=== PATIENT | female | born 1960 | race Caucasian/White ===

== ENCOUNTER → 2021-02-01 08:32 | Outpatient (CLI) | payer OTHER, MEDICAID, SELFPAY ==
--- NOTE | 2021-02-01 | DI.RAD.S_ITS ---
PROCEDURE: FL UPPER GI SMALL BOWEL INDICATIONS: Anemia, unspecified COMPARISON: None. 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 Cholecystectomy clips are present. No suspicious abdominal calcifications. Visualized solid organ contours appear normal in size. No suspicious bony abnormalities. Esophagus: Air-contrast views demonstrate a normal mucosal pattern. On single-contrast views, there is normal peristalsis. No fixed strictures, extrinsic mass effects, or diverticula. There is a small hiatal hernia. There is severe spontaneous gastroesophageal reflux into the upper esophagus. Stomach: The gastric lumen is normally distensible, and has normal rugal fold thickness. No mucosal masses or ulcers. The pylorus and duodenal bulb have a normal morphology. Small bowel: Duodenal folds appear normal in thickness. There is normal transit time of barium through the small intestine. Small bowel loops appear normal in caliber throughout. Jejunal and ileal folds are smooth and normal in thickness. No strictures, intraluminal masses, or extrinsic mass effects. IMPRESSION: 1. Small hiatal hernia with severe associated spontaneous gastroesophageal reflux. 2. Negative evaluation of the small bowel. Dictated by: Saundra Reyes M.D. on 02/01/2021 at 16:20 Approved by: Saundra Reyes M.D. on 02/01/2021 at 16:21
== END ==
PROVIDERS: PCP Internal Medicine; Referring Provider Internal Medicine; Visit Provider Internal Medicine
DX: D64.9 Anemia, unspecified (principal)
CPT/HCPCS: 74240; 74248

== ENCOUNTER → 2021-06-11 10:27 | Outpatient (CLI) | payer OTHER, MEDICAID, SELFPAY ==
[2021-06-11 14:22] LABS: COVID19 -Nasal RAPID Negative (Negative)
== END ==
PROVIDERS: PCP Internal Medicine; Referring Provider Nurse Practitioner Family; Visit Provider Nurse Practitioner Family
DX: Z20.822 Contact with and (suspected) exposure to COVID-19 (principal); Z01.812 Encounter for preprocedural laboratory examination
CPT/HCPCS: 87635; C9803

== ENCOUNTER 2021-06-12 08:12 | Day surgery (SDC) | payer OTHER, MEDICAID, SELFPAY ==
--- NOTE | 2021-06-12 | PATH_ITS ---
[facility] Accession Number: [id number] . 01 Material submitted: . PART A: stomach - ANTRAL PART B: esophagus, E-G Junction - GE JUNCTION . 02 Diagnosis: A. Antrum, Biopsy: Gastric antral mucosa with mild chronic and active inflammation. Negative for Helicobacter organisms by immunohistochemistry. Negative for intestinal metaplasia. Negative for dysplasia or malignancy. . B. Gastroesophageal Junction, Biopsy: Squamocolumnar junctional mucosa with mild chronic inflammation. Negative for specialized intestinal metaplasia on alcian blue stain. Negative for dysplasia or malignancy. MRV 06/15/2021 1448 Local . 02 Electronically signed: . Blake Tineo MD, PhD, Pathologist NPI- [id number] . 01 Gross description: . Part A: ANTRAL: Received in formalin are 2 fragment(s) of rosales, soft tissue measuring 0.3 x 0.2 x 0.2 cm to 0.3 x 0.2 x 0.2 cm submitted entirely in 1 cassette(s) Part B: GE JUNCTION: Received in formalin is 1 fragment(s) of rosales, soft tissue measuring 0.3 x 0.1 x 0.1 cm submitted entirely in 1 cassette(s) /HARSH 06/13/2021 0507 Local . 02 Microscopic: . A. An immunohistochemical stain was performed to evaluate for Helicobacter organisms and is negative. The control stain showed appropriate reactivity. . B. An AB/PAS stain is performed to evaluate for specialized intestinal metaplasia and is negative for goblet cells. A control stain shows appropriate reactivity. . * This test was developed and its performance characteristics determined by [employer]. It has not been cleared or approved by the U.S. Food and Drug Administration. The FDA has determined that such clearance or approval is not necessary. This test is used for clinical purposes. It should not be regarded as investigational or for research. . 02 Pathologist provided ICD-10: K29.70, K20.80 . 02 CPT . 960589, 511576, O95551, 798607 Performed at: 01 [facility] [address] [id number] MD Chandler Benavidez MD Phone: [phone] Performed at: 02 [facility] [address] [place] [id number] MD Harini Wick MD Phone: [phone]
[2021-06-12 09:15] VITALS: BP 133/88; PULSE 70; RESP 16; TEMP 36.4; O2SAT 97; BMI 29.2
--- NOTE | 2021-06-12 09:23 | PM.HP.1 ---
History of Present Illness History of Present Illness Date Patient Seen: 06/12/21 Time Patient Seen: 09:23 Chief complaint: SDC Narrative: I reviewed my note from March 12, 2021 no significant changes. Patient indicates that she still having some bleeding but also reports a bulging out in her epigastric region Patient History Medical History Bipolar 1 disorder Hiatal hernia Surgical History H/O: hysterectomy History of appendectomy Hx of abdominal surgery Hx of cholecystectomy Meds Home Medications and Allergies Home Medications Medication Instructions Recorded Confirmed Type aripiprazole 20 mg tablet 20 mg PO DAILY 06/12/21 06/12/21 History aripiprazole 5 mg tablet 5 mg PO DAILY 06/12/21 06/12/21 History Allergies Allergy/AdvReac Type Severity Reaction Status Date / Time Penicillins Allergy Severe Swelling Verified 06/12/21 09:06 of Lip/Tongue/Throat peanut Allergy Rash Verified 06/12/21 09:08 acetaminophen [From Vicodin] AdvReac Confusion Verified 06/12/21 09:08 codeine AdvReac Confusion Verified 06/12/21 09:07 hydrocodone [From Vicodin] AdvReac Confusion Verified 06/12/21 09:08 Review of Systems Review of Systems ROS: Yes All systems reviewed with the patient and are negative except as otherwise documented Exam Const General: cooperative and comfortable Orientation: alert HENNE Head: normocephalic Ears: external ears normal Nose: external nose normal Face and sinus: normal facial exam Mouth: oral mucosae normal Eyes General: appearance normal, both eyes and all related structures Neck Neck: normal visual inspection Chest Chest: normal inspection of the chest Resp Effort & Inspection: normal respiratory effort Auscultation: clear to auscultation bilaterally Cardio Rate: regular rate Rhythm: regular rhythm Heart Sounds: no murmurs GI Inspection: normal to inspection Palpation: soft and No tender Auscultation: normal bowel sounds Skin General: no rashes or lesions noted and No jaundice Neuro General: patient alert and moves all extremities Cognition: normal cognition Speech: speech normal Extrem General: no pedal edema Psych Appearance: grossly normal Assessment & Plan Assessment & Plan narrative: Dark stools epigastric bulging. GERD. EGD is pursued today. Time Spent With Patient Critical Care time: I spent a total of [] minutes of critical care time on this patient's care today; this time is exclusive of procedural time.
--- NOTE | 2021-06-12 09:25 | PM.PREOP ---
Pre-operative Note COVID-19 COVID-19 status: Negative Result date/Date tested (Pos, Neg/Pending): 06/11/21 Interval Note History & Physical reviewed/Exam performed by Physician: Yes Changes to H&P: No ASA Class (for procedural sedation): II
[2021-06-12] MEDS: SODIUM CHLORIDE 0.9% 1,000 ML 84 ML IV (09:26)
[2021-06-12 09:28] VITALS: BMI 29.2
[2021-06-12 10:16] VITALS: BP 112/67; PULSE 68; RESP 12; TEMP 36.3; O2SAT 92
--- NOTE | 2021-06-12 10:19 | PM.OP.EGD ---
Operative Date/Time/Diagnoses Date of procedure: 06/12/21 Time of procedure: 10:19 Post-op diagnosis: same Procedure & Clinicians Study performed: EGD with biopsies Same procedure as scheduled: Yes Indications: Melena Surgeon: Da Peralta Procedure Notes SCOAP/Timeout: Done Procedure in detail: After the risks and benefits were explained, written and verbal informed consent was obtained. The patient was brought into the procedure room and placed into the left lateral decubitus position. Please see nurse [employer] compliance internship notes for sedation details. The scope was introduced into the mouth through the bite block and advanced under direct visualization to the 2nd portion of the duodenum. The scope was slowly withdrawn carefully examining the mucosa for any defects or lesions. Retroflexed views were accomplished in the stomach. The stomach was decompressed, the scope was then removed from the patient who tolerated the procedure well. Sedation minutes: 10 Complications: none Impression: 1. Duodenum: There was some streaky erythema in the duodenal bulb. No ulcers erosions mass lesions strictures or other pathology throughout including excellent visualization of the 2nd portion. 2. Stomach: Patient had an erosive gastropathy. Erosive features were mainly found down in the pre-pyloric/pyloric and antral region. Biopsies were acquired for exclusion of Helicobacter or other pathology. Retroflexed views of the LES were unremarkable. No mass lesions no ulcers no strictures in the stomach. 3. Esophagus: The squamocolumnar junction generally correlated with the top of the gastric folds. The GEJ was at approximately 35 cm from the incisors. The GEJ was a little irregular and probably inflamed on the cardia side. Biopsy was thus acquired for exclusion of any concerning pathology. The remainder of the esophagus was unremarkable. Endoscopic diagnosis 1. Subtle sliding hiatal hernia (not mentioned above) 2. Irregular GEJ 3. Erosive gastropathy Post-procedure Plan for aftercare: 1. Await histopathology 2. Avoid NSAIDs 3. Follow up GI clinic as needed Disposition: PACU
[2021-06-12 10:21] VITALS: BP 110/67; PULSE 64; RESP 12; O2SAT 94
[2021-06-12 10:30] VITALS: BP 133/68; PULSE 58; RESP 19; O2SAT 100
== END 2021-06-12 11:05 | disposition home or self-care (01) ==
PROVIDERS: PCP Internal Medicine; Referring Provider Internal Medicine Gastroenterology; Visit Provider Internal Medicine Gastroenterology
PROC: 0DJ08ZZ Inspection of Upper Intestinal Tract, Via Natural or Artificial Opening Endoscopic (ICD-10-PCS; CPT 43235; principal; 2021-06-12 09:30)
DX: K29.50 Unspecified chronic gastritis without bleeding (principal); K21.9 Gastro-esophageal reflux disease without esophagitis; K44.9 Diaphragmatic hernia without obstruction or gangrene; K31.9 Disease of stomach and duodenum, unspecified; F17.210 Nicotine dependence, cigarettes, uncomplicated
CPT/HCPCS: 43239; J2704; J3010

== ENCOUNTER → 2024-08-11 21:49 | Outpatient (ROUT) | payer MEDICARE, MEDICAID, SELFPAY ==
[2024-08-11 22:29] LABS: Appearance Urine UA CLEAR; Bilirubin Urine UA NEGATIVE (NEGATIVE); Color Urine UA YELLOW; Glucose Urine UA NEGATIVE (Negative); Ketones Urine UA NEGATIVE (NEGATIVE); Leukocyte Esterase Urine UA NEGATIVE (NEGATIVE); Nitrite Urine UA NEGATIVE (Negative); Occult Blood Urine UA NEGATIVE (Negative); Protein Urine UA NEGATIVE (Negative); Urobilinogen Urine UA 0.2 E.U./dL (0.2)
[2024-08-11 22:52] LABS: Bacteria Urine Few (2-10); Culture Indicated Urine Cult Not Indicated; RBC Urine None Seen (0-5/HPF); Squamous Epithelial Cell Urine 5-10 /HPF (0-5/HPF); Urine Volume 10mL (spun); WBC Urine 0-1/HPF (0-5/HPF)
== END ==
PROVIDERS: PCP Internal Medicine; Visit Provider Nurse Practitioner Family
DX: R10.9 Unspecified abdominal pain (principal); R32 Unspecified urinary incontinence; R35.0 Frequency of micturition; R30.0 Dysuria
CPT/HCPCS: 81001

== ENCOUNTER → 2024-09-08 07:54 | Outpatient (ROUT) | payer MEDICARE, MEDICAID, SELFPAY ==
[2024-09-08 12:52] LABS: Hemoglobin 13.3 g/dL (12.0-16.0); Mean Corpuscular HGB Conc 33.2 % (30-36); Mean Corpuscular Hemoglobin 31.1 PG (26-34); Mean Corpuscular Volume 93.7 fL (80-100); Platelet Count 248 X10^3/uL (150-400); Red Blood Cell Count 4.27 X10^6/uL (4.0-5.2); Red Cell Distribution Width 14.9 % (11.6-14.8); White Blood Cell Count 7.7 X10^3/uL (4.5-11.0)
[2024-09-08 12:58] LABS: Alanine Aminotransferase 18 IU/L (<35); Albumin 3.8 g/dL (3.5-5.0); Albumin Globulin Ratio 1.7 (1.0-2.8); Alkaline Phosphatase 122 U/L (38-126); Aspartate Aminotransferase 25 IU/L (14-36); BUN Creatinine Ratio 22.4 (6-22); Bilirubin Total 0.7 mg/dL (0.2-1.3); Blood Urea Nitrogen 17 mg/dL (7-17); Carbon Dioxide 28 mmol/L (22-32); Chloride 106 mmol/L (98-107); Estimated Glomerular Filt Rate > 60 mL/min (>60); Globulin 2.3 g/dL (1.7-4.1); Glucose 83 mg/dL (80-110); HEMOLYSIS < 15 (0-50); Potassium 3.8 mmol/L (3.4-5.1); Sodium 140 mmol/L (137-145); Total Protein 6.1 g/dL (6.3-8.2)
== END ==
PROVIDERS: Visit Provider Registered Nurse
DX: Z51.81 Encounter for therapeutic drug level monitoring (principal)
CPT/HCPCS: 36415; 80053; 85027

== ENCOUNTER → 2024-12-29 06:22 | Outpatient (ROUT) | payer MEDICARE, MEDICAID, SELFPAY ==
[2024-12-29 08:20] LABS: Add Manual Diff / Slide Review NO; Basophils Absolute Auto 0 /uL (0-100); Basophils Percent Auto 0.3 % (0-2); Eosinophils Absolute Auto 100 /uL (0-450); Eosinophils Percent Auto 1.3 % (2-4); Hematocrit 37.1 % (36-46); Hemoglobin 12.8 g/dL (12.0-16.0); Lymphocytes Absolute Auto 1300 /uL (1100-4500); Lymphocytes Percent Auto 18.7 % (25-40); Mean Corpuscular HGB Conc 34.4 % (30-36); Monocytes Absolute Auto 600 /uL (0-900); Monocytes Percent Auto 8.7 % (3-14); Neutrophils Absolute Auto 5100 /uL (1500-7000); Platelet Count 222 X10^3/uL (150-400); Red Blood Cell Count 4.12 X10^6/uL (4.0-5.2); Red Cell Distribution Width 15.4 % (11.6-14.8); White Blood Cell Count 7.1 X10^3/uL (4.5-11.0)
[2024-12-29 08:31] LABS: Alanine Aminotransferase 33 IU/L (<35); Albumin Globulin Ratio 1.7 (1.0-2.8); Alkaline Phosphatase 132 U/L (38-126); Aspartate Aminotransferase 31 IU/L (14-36); BUN Creatinine Ratio 26.4 (6-22); Bilirubin Total 0.6 mg/dL (0.2-1.3); Blood Urea Nitrogen 24 mg/dL (7-17); Calcium 8.8 mg/dL (8.4-10.2); Carbon Dioxide 26 mmol/L (22-32); Chloride 107 mmol/L (98-107); Estimated Glomerular Filt Rate > 60 mL/min (>60); Globulin 2.3 g/dL (1.7-4.1); Glucose 83 mg/dL (70-99); HEMOLYSIS < 15 (0-50); Potassium 3.8 mmol/L (3.4-5.1); Sodium 140 mmol/L (137-145); Total Protein 6.3 g/dL (6.3-8.2)
[2024-12-29 08:57] LABS: Free T4, Direct Thyroxine 0.92 ng/dL (0.78-2.19); T4 Total Thyroxine 6.98 ug/dL (5.5-11.0); T7 (Free Thyroxine Index) 2.49 (1.65-3.89); Triiodothryronine T3 Uptake 35.7 % (23.5-40.5)
[2024-12-29 09:10] LABS: Ferritin 37 ng/mL (11-264)
== END ==
PROVIDERS: Visit Provider Physician Assistant
DX: L65.9 Nonscarring hair loss, unspecified (principal)
CPT/HCPCS: 36415; 80053; 82728; 84436; 84439; 84443; 84479; 85025

== ENCOUNTER → 2025-01-05 20:26 | Outpatient (ROUT) | payer MEDICARE, MEDICAID, SELFPAY ==
[2025-01-05 20:48] LABS: Appearance Urine UA CLEAR; Bilirubin Urine UA NEGATIVE (NEGATIVE); Color Urine UA YELLOW; Glucose Urine UA NEGATIVE (Negative); Ketones Urine UA NEGATIVE (NEGATIVE); Leukocyte Esterase Urine UA NEGATIVE (NEGATIVE); Nitrite Urine UA NEGATIVE (Negative); Occult Blood Urine UA NEGATIVE (Negative); Protein Urine UA NEGATIVE (Negative); Specific Gravity Urine UA >=1.030 (1.000-1.035); Urobilinogen Urine UA 0.2 E.U./dL (0.2)
[2025-01-05 20:50] LABS: pH Urine UA 5.5 (4.5-8.0)
[2025-01-05 20:55] LABS: Bacteria Urine None Seen; RBC Urine None Seen (0-5/HPF); Urine Volume 10mL (spun); WBC Urine None Seen (0-5/HPF)
[2025-01-05 20:56] LABS: Culture Indicated Urine Cult Not Indicated; Renal Epithelial Cells Urine 0-1/HPF (0-1/HPF); Squamous Epithelial Cell Urine None Seen (0-5/HPF)
== END ==
LOC: LAB 20:26
PROVIDERS: Visit Provider Registered Nurse
DX: R35.0 Frequency of micturition (principal); N39.41 Urge incontinence
CPT/HCPCS: 81001

== ENCOUNTER → 2025-01-10 13:14 | Outpatient (CLI) | payer MEDICARE, MEDICAID, SELFPAY ==
--- NOTE | 2025-01-10 13:19 | DI.RAD.S_ITS ---
PROCEDURE: XR ABDOMEN MIN 2V INDICATIONS: SEVERE ABDOMINAL PAIN TECHNIQUE: 2 views of the abdomen were acquired. COMPARISON: None. FINDINGS: Surgical changes and devices: Right upper quadrant surgical clips. The visualized portions of the lung bases are clear. Bowel: No pneumoperitoneum. The bowel gas pattern is normal. Soft tissues: No masses; visualized solid organ contours appear normal in size. No suspicious abdominal calcifications. Bones: No suspicious bony abnormalities. IMPRESSION: Non-obstructive bowel gas pattern. Dictated by: Amrit Rm M.D. on 01/10/2025 at 23:59 Approved by: Amrit Rm M.D. on 01/11/2025 at 0:00
== END ==
PROVIDERS: Referring Provider Registered Nurse; Visit Provider Registered Nurse
DX: R10.32 Left lower quadrant pain (principal); R30.0 Dysuria
CPT/HCPCS: 74019

== ENCOUNTER → 2025-05-23 19:28 | Outpatient (ROUT) | payer MEDICARE, MEDICAID, SELFPAY ==
[2025-05-23 19:47] LABS: Blood Urea Nitrogen 12 mg/dL (7-17); Calcium 9.2 mg/dL (8.4-10.2); Carbon Dioxide 24 mmol/L (22-32); Chloride 104 mmol/L (98-107); Estimated Glomerular Filt Rate > 60 mL/min (>60); Glucose 146 mg/dL (70-99); HEMOLYSIS < 15 (0-50); Potassium 3.9 mmol/L (3.4-5.1); Sodium 138 mmol/L (137-145)
== END ==
LOC: LAB 19:29
PROVIDERS: Visit Provider Registered Nurse
DX: E86.0 Dehydration (principal)
CPT/HCPCS: 80048

== ENCOUNTER 2025-05-31 23:24 | Emergency (ER) | payer MEDICARE, MEDICAID, SELFPAY ==
--- NOTE | 2025-05-31 23:25 | ED.NECK ---
HPI - Neck Pain/Injury General Chief Complaint: Neck Pain/Injury Stated Complaint: Neck pain History of Present Illness HPI Narrative: 64-year-old female history of bipolar, neck surgery early 1999 presents with neck pain after getting out of bed and hearing a pop and suddenly became dizzy and had headache worse with leaning for leaning forward and sitting down and getting up along with neck pain whereby orthostatics were done by EMS prior to arrival including sitting BP 127/75 pulse of 90 standing blood pressure 125/84 and pulse 100. Patient denies numbness tingling down the arms, blurred vision, sore throat, earache, cough, runny nose, fever, chills, bodyaches, stiff neck, rash, nausea, vomiting, chest pain, shortness of breath, leg pain, leg swelling. Other than what is stated 14 point review of systems negative. Related Data Home Medications ?Medication ?Instructions ?Recorded ?Confirmed aripiprazole 20 mg tablet 20 mg PO DAILY 06/12/21 09/27/24 aripiprazole 5 mg tablet 5 mg PO DAILY 06/12/21 09/27/24 Previous Rx's ?Medication ?Instructions ?Recorded permethrin 5 % topical cream 1 applic topical ONCE #60 grams 09/27/24 Allergies Allergy/AdvReac Type Severity Reaction Status Date / Time Penicillins Allergy Severe Swelling Verified 05/31/25 23:29 of Lip/Tongue/Throat peanut Allergy Rash Verified 05/31/25 23:29 codeine AdvReac Confusion Verified 05/31/25 23:29 hydrocodone (From Vicodin) AdvReac Confusion Verified 05/31/25 23:29 Review of Systems Review of Systems ROS Unobtainable: All systems reviewed & are unremarkable except as noted in HPI and below Patient History Medical History (Updated 06/01/25 @ 01:40 by Kolby Valdes DO) Bipolar 1 disorder Hiatal hernia Surgical History (System 09/09/24 @ 07:37 by Ruchi Gamboa) H/O neck surgery Hx of abdominal surgery H/O: hysterectomy History of appendectomy Hx of cholecystectomy Social History (System 09/09/24 @ 07:37 by Ruchi Gamboa) household members: family Smoking Status: Current some day smoker alcohol intake: never Exam Narrative Exam Narrative: GENERAL: [64] year old patient appears stated age. Well-developed patient, in mild distress. HEAD: Atraumatic. Normocephalic. EYES: Pupils equal round and reactive. Extraocular motions intact. No scleral icterus. No injection or drainage. ENT: Nose without bleeding, purulent drainage. Throat without erythema, tonsillar hypertrophy or exudate. Airway patent. NECK: Trachea midline. Left paracervical region C4-7 tender to palpate with decreased range of motion rotating neck to the left side but able to flex, extend, rotate neck to right side, side to left and to the right without difficulty CARDIOVASCULAR: Regular rate and rhythm without murmurs, gallops, or rubs. RESPIRATORY: Clear to auscultation. Breath sounds equal bilaterally. No wheezes, rales, or rhonchi. GASTROINTESTINAL: Abdomen soft, non-tender, nondistended. EXTREMITIES: No edema or joint tenderness. BACK: Nontender without deformity or crepitance. No flank tenderness. NEURO: AOx3. GCS 15 nonfocal neuro exam SKIN: No rash or erythema of visible areas Initial Vital Signs Initial Vital Signs: Vital Signs Temperature 98 F 05/31/25 23:29 Pulse Rate 82 05/31/25 23:29 Respiratory Rate 16 05/31/25 23:29 Blood Pressure 126/89 05/31/25 23:29 Pulse Oximetry 95 05/31/25 23:29 Oxygen Delivery Method Room Air 05/31/25 23:29 Course Orders Ordered: ED Orders 05/31/25 23:38 CT angio head and neck Stat CT head/brain wo con Stat XR chest 1V Stat [facility] Creatine Kinase MB Routine EKG-12 Lead Stat 05/31/25 23:50 Complete Blood Count AUTO DIFF Stat Comprehensive Metabolic Panel Stat Lipase Stat Magnesium Stat NT-proBNP (BNP-Adult 18+) Stat Troponin I Stat Discontinued Medications Acetaminophen (Acetaminophen 325 Mg Tablet) 975 mg PO NOW ONE Stop: 06/01/25 00:56 Last Admin: 06/01/25 01:03 Dose: 975 mg Documented By: SBF Vital Signs Vital signs: Vital Signs - 8 hr 05/31/25 23:29 06/01/25 00:30 06/01/25 00:32 Temperature 98 F Pulse Rate 82 74 Respiratory Rate 16 Blood Pressure 126/89 92/62 Pulse Oximetry 95 99 Oxygen Delivery Method Room Air 06/01/25 01:00 Temperature Pulse Rate 76 Respiratory Rate 22 Blood Pressure Pulse Oximetry 94 Oxygen Delivery Method MDM - Neck Pain/Injury Lab Data 05/31/25 23:50 05/31/25 23:50 Labs: Lab Results 05/31/25 Range/Units 23:50 WBC 9.6 (4.5-11.0) X10^3/uL RBC 4.65 (4.0-5.2) X10^6/uL Hgb 14.1 (12.0-16.0) g/dL Hct 42.6 (36-46) % MCV 91.5 (80-100) fL MCH 30.4 (26-34) PG MCHC 33.2 (30-36) % RDW 16.1 H (11.6-14.8) % Plt Count 265 (150-400) X10^3/uL Neut % (Auto) 76.9 H (50-75) % Lymph % (Auto) 16.7 L (25-40) % Cooper % (Auto) 5.0 (3-14) % Eos % (Auto) 0.5 L (2-4) % Baso % (Auto) 0.9 (0-2) % Neut # (Auto) 7400 H (9493-4771) /uL Lymph # (Auto) 1600 (7611-7631) /uL Cooper # (Auto) 500 (0-900) /uL Eos # (Auto) 0 (0-450) /uL Baso # (Auto) 100 (0-100) /uL Sodium 137 (137-145) mmol/L Potassium 4.2 (3.4-5.1) mmol/L Chloride 104 (98-107) mmol/L Carbon Dioxide 26 (22-32) mmol/L BUN 22 H (7-17) mg/dL Creatinine 1.10 H (0.52-1.04) mg/dL Estimated GFR 56 L (>60) mL/min BUN/Creatinine Ratio 20.0 (6-22) Glucose 98 (70-99) mg/dL Calcium 9.2 (8.4-10.2) mg/dL Magnesium 2.1 (1.6-2.3) mg/dL Total Bilirubin 0.5 (0.2-1.3) mg/dL AST 25 (14-36) IU/L ALT 16 (<35) IU/L Alkaline Phosphatase 149 H (38-126) U/L Troponin I < 0.012 (0.01-0.034) ng/mL NT-Pro-B Natriuret Pep 34 (<125) pg/mL Total Protein 7.9 (6.3-8.2) g/dL Albumin 4.7 (3.5-5.0) g/dL Globulin 3.2 (1.7-4.1) g/dL Albumin/Globulin Ratio 1.5 (1.0-2.8) Lipase 171 (23-300) U/L Imaging Data Chest x-ray: Radiologist's Impression: [place] [address] XRay Report Signed Patient: Dayana Love MR#: [id number] : 1960 Acct:[id number] Age/Sex: 64 / F Date of Service: 05/31/25 Loc: ED Accession Number: [id number] Procedure: XR chest 1V Ordering Provider: Kolby Valdes D.O. PROCEDURE: XR CHEST 1V INDICATIONS: headache TECHNIQUE: One view of the chest was acquired. COMPARISON: [facility], , XR CHEST 2 VIEWS, 01/24/2019, 0:22. FINDINGS: Surgical changes and devices: ACDF. Clips in the upper abdomen. Lungs and pleura: Lungs are clear. No pleural effusions or pneumothorax. Mediastinum: Mediastinal contours appear normal. Heart size is normal. Bones and chest wall: No suspicious bony lesions. Overlying soft tissues appear unremarkable. IMPRESSION: No acute cardiopulmonary abnormality is seen. CT scan - head: Radiologist's Impression: [place] [address] CT Scan Report Signed Patient: Dayana Love MR#: [id number] : 1960 Acct:[id number] Age/Sex: 64 / F Date of Service: 05/31/25 Loc: ED Accession Number: [id number] Procedure: CT head/brain wo con Ordering Provider: Kolby Valdes D.O. PROCEDURE: CT HEAD/BRAIN WO CON INDICATIONS: headache TECHNIQUE: Noncontrast 4.5 mm thick angled axial sections acquired from the foramen magnum to the vertex, with coronal and sagittal reformats. For radiation dose reduction, the following was used: automated exposure control, adjustment of mA and/or kV according to patient size. COMPARISON: None. FINDINGS: Image quality: Diagnostic. CSF spaces: Basal cisterns are patent. No extra-axial fluid collections. Lateral ventricles are mildly enlarged. 3rd and 4th ventricles are felt to be within normal limits. Brain: No midline shift. No intracranial mass effect or hemorrhage. No area of hypodensity in a large vascular distribution to suggest acute infarction. Periventricular hypodensity consistent with chronic microvascular ischemic change. Age-related parenchymal loss. Skull and face: Calvarium and visualized facial bones are intact, without suspicious lesions. Sinuses: Visualized sinuses and mastoids are clear. IMPRESSION: 1. No acute intracranial hemorrhage. 2. Lateral ventricles are mildly enlarged. MRI would be helpful for further evaluation. Dictated by: Art Cloud M.D. on 06/01/2025 at 1:16 Approved by: Art Cloud M.D. on 06/01/2025 at 1:20 CTA - brain/neck: Radiologist's Impression: [place] [address] CT Scan Report Signed Patient: Dayana Love MR#: [id number] : 1960 Acct:[id number] Age/Sex: 64 / F Date of Service: 05/31/25 Loc: Accession Number: [id number] Procedure: CT angio head and neck Ordering Provider: Kolby Valdes D.O. PROCEDURE: CT ANGIO HEAD AND NECK INDICATIONS: headache TECHNIQUE: After the administration of intravenous contrast, 1 mm thick sections acquired from the aortic arch through the [place] of Singh. 3-dimensional budpqoe-khvjcwuut-kgjpklhrmr (MIP) and/or volume rendering reformats were acquired of the central intracranial vasculature and neck separately. For radiation dose reduction, the following was used: automated exposure control, adjustment of mA and/or kV according to patient size. COMPARISON: [facility], CT, CT HEAD/BRAIN WO CON, 06/01/2025, 0:15. FINDINGS: Image quality: Diagnostic. Cerebral CT Angiogram: Internal carotid arteries: No acute findings. Intracranial ICA are patent with no significant stenosis. No occlusion. No aneurysm. Anterior cerebral arteries: Unremarkable. No significant stenosis. No occlusion. No aneurysm. Middle cerebral arteries: Unremarkable. No significant stenosis. No occlusion. No aneurysm. Posterior cerebral arteries: Unremarkable. No significant stenosis. No occlusion. No aneurysm. Basilar artery: Unremarkable. No significant stenosis. No occlusion. No aneurysm. Vertebral arteries: Unremarkable as visualized. Dural venous sinuses: Unremarkable given phase of enhancement. Other: Arterial phase appearance of the brain parenchyma is unremarkable. Neck CT Angiogram: Internal carotid arteries: Extensive plaque at the carotid bulbs. The ICAs are torturous. Less than 50% stenosis. No dissection or occlusion. Common carotid arteries: Unremarkable. No significant stenosis. No dissection or occlusion. External carotid arteries: Unremarkable. No occlusion. Vertebral arteries: Unremarkable. No significant stenosis. No dissection or occlusion. Aortic Arch and Mediastinum: Partially visualized aortic arch unremarkable without evidence of aneurysm. Left vertebral artery originates off of the aortic arch, variant. Other: Arterial phase soft tissues of the neck and chest are unremarkable. Bones: C6-C7 ACDF. No suspicious osseous lesion. IMPRESSION: No significant intracranial arterial abnormality is seen. No significant abnormality is seen within the arteries of the neck. Any quantitative measurements of stenosis were performed using NASCET criteria. ECG Data Interpretation: NSR HR 76 DE 206 QRS [address]-t wave change No previous EKG to compare MDM Narrative Medical decision making narrative: All lab work, vital signs, nurse triage note, medication list, previous ER visits, and all imaging studies reviewed. WBC 9.6 hemoglobin 14.1 platelets 265. Okay sodium 137 potassium 4.2 104 CO2 26 BUN 22 creatinine 1.1 glucose 98 magnesium 2.1 troponin normal BNP 34. Chest x-ray showed no acute process. CT head no acute intracranial hemorrhage. Lateral ventricles are mildly enlarged. Patient given Tylenol here. Differential diagnosis CVA, TIA, subarachnoid, subdural, hemorrhage, fracture, dislocation, pneumothorax, contusion, orthostatic hypotension, electrolyte derangement. Discharge Plan Departure Patient Disposition: Home Clinical Impression: Dizziness, Neck pain Instructions: DI for Neck Pain Activity Restrictions/Additional Instructions: Return with new or worsening symptoms. Take Tylenol as needed for pain control 500 mg every 6 hours as needed. Follow up PCP this week if no improvement in symptoms. Prescriptions: No Action permethrin 5 % cream 1 applic topical ONCE Qty: 60 0RF Rx Instructions: leave on for 8 to14 hrs before washing off aripiprazole 20 mg tablet 20 mg PO DAILY aripiprazole 5 mg tablet 5 mg PO DAILY Patient Comments: TAKE 1 TABLET BY MOUTH IN THE MORNING FOR INTRUSIVE THOUGHTS Referrals: Miscellaneous,Doctor, MD [Primary Care Provider, Medical] Stand Alone Forms: Patient Portal/API
[2025-05-31 23:29] VITALS: BP 126/89; PULSE 82; RESP 16; TEMP 36.6; O2SAT 95; BMI 31.9
--- NOTE | 2025-05-31 23:38 | DI.CT.S_ITS ---
PROCEDURE: CT HEAD/BRAIN WO CON INDICATIONS: headache TECHNIQUE: Noncontrast 4.5 mm thick angled axial sections acquired from the foramen magnum to the vertex, with coronal and sagittal reformats. For radiation dose reduction, the following was used: automated exposure control, adjustment of mA and/or kV according to patient size. COMPARISON: None. FINDINGS: Image quality: Diagnostic. CSF spaces: Basal cisterns are patent. No extra-axial fluid collections. Lateral ventricles are mildly enlarged. 3rd and 4th ventricles are felt to be within normal limits. Brain: No midline shift. No intracranial mass effect or hemorrhage. No area of hypodensity in a large vascular distribution to suggest acute infarction. Periventricular hypodensity consistent with chronic microvascular ischemic change. Age-related parenchymal loss. Skull and face: Calvarium and visualized facial bones are intact, without suspicious lesions. Sinuses: Visualized sinuses and mastoids are clear. IMPRESSION: 1. No acute intracranial hemorrhage. 2. Lateral ventricles are mildly enlarged. MRI would be helpful for further evaluation. Dictated by: Art Cloud M.D. on 06/01/2025 at 1:16 Approved by: Art Cloud M.D. on 06/01/2025 at 1:20
--- NOTE | 2025-05-31 23:38 | DI.CT.S_ITS ---
PROCEDURE: CT ANGIO HEAD AND NECK INDICATIONS: headache TECHNIQUE: After the administration of intravenous contrast, 1 mm thick sections acquired from the aortic arch through the [place] of [place]. 3-dimensional xaaceqf-brfgixlej-ytsggnoczn (MIP) and/or volume rendering reformats were acquired of the central intracranial vasculature and neck separately. For radiation dose reduction, the following was used: automated exposure control, adjustment of mA and/or kV according to patient size. COMPARISON: [facility], CT, CT HEAD/BRAIN WO CON, 06/01/2025, 0:15. FINDINGS: Image quality: Diagnostic. Cerebral CT Angiogram: Internal carotid arteries: No acute findings. Intracranial ICA are patent with no significant stenosis. No occlusion. No aneurysm. Anterior cerebral arteries: Unremarkable. No significant stenosis. No occlusion. No aneurysm. Middle cerebral arteries: Unremarkable. No significant stenosis. No occlusion. No aneurysm. Posterior cerebral arteries: Unremarkable. No significant stenosis. No occlusion. No aneurysm. Basilar artery: Unremarkable. No significant stenosis. No occlusion. No aneurysm. Vertebral arteries: Unremarkable as visualized. Dural venous sinuses: Unremarkable given phase of enhancement. Other: Arterial phase appearance of the brain parenchyma is unremarkable. Neck CT Angiogram: Internal carotid arteries: Extensive plaque at the carotid bulbs. The ICAs are torturous. Less than 50% stenosis. No dissection or occlusion. Common carotid arteries: Unremarkable. No significant stenosis. No dissection or occlusion. External carotid arteries: Unremarkable. No occlusion. Vertebral arteries: Unremarkable. No significant stenosis. No dissection or occlusion. Aortic Arch and Mediastinum: Partially visualized aortic arch unremarkable without evidence of aneurysm. Left vertebral artery originates off of the aortic arch, variant. Other: Arterial phase soft tissues of the neck and chest are unremarkable. Bones: C6-C7 ACDF. No suspicious osseous lesion. IMPRESSION: No significant intracranial arterial abnormality is seen. No significant abnormality is seen within the arteries of the neck. Any quantitative measurements of stenosis were performed using NASCET criteria. Dictated by: Art Cloud M.D. on 06/01/2025 at 1:21 Approved by: Art Cloud M.D. on 06/01/2025 at 1:31
--- NOTE | 2025-05-31 23:38 | DI.RAD.S_ITS ---
PROCEDURE: XR CHEST 1V INDICATIONS: headache TECHNIQUE: One view of the chest was acquired. COMPARISON: [facility], CR, XR CHEST 2 VIEWS, 01/24/2019, 0:22. FINDINGS: Surgical changes and devices: ACDF. Clips in the upper abdomen. Lungs and pleura: Lungs are clear. No pleural effusions or pneumothorax. Mediastinum: Mediastinal contours appear normal. Heart size is normal. Bones and chest wall: No suspicious bony lesions. Overlying soft tissues appear unremarkable. IMPRESSION: No acute cardiopulmonary abnormality is seen. Dictated by: Art Cloud M.D. on 06/01/2025 at 1:14 Approved by: Art Cloud M.D. on 06/01/2025 at 1:16
--- NOTE | 2025-05-31 23:52 | EKG_ITS ---
[place] [address] [address] [place] [id number] Test Date: 2025-05-31 Pat Name: Dayana Love Department: [facility] Room: Gender: Female Institutional Research Coordinator: : 1960 Requested By: Order Number: [id number] Reading MD: Gregory Jain Measurements Intervals Erwin Rate: 76 P: 67 VT: 206 QRS: 67 QRSD: 88 T: 72 QT: 384 QTc: 432 Interpretive Statements Normal sinus rhythm Electronically Signed On 06-01-2025 8:16:59 PDT by Gregory Jain
--- NOTE | 2025-05-31 23:58 | PC.NURSE ---
pt states a few days ago she was getting out of bed and felt a snap in the left side of her neck. denies recent injury. pt has full rom of neck no obvious deformity or crepitus noted
[2025-05-31 23:59] LABS: Add Manual Diff / Slide Review NO; Hematocrit 42.6 % (36-46); Hemoglobin 14.1 g/dL (12.0-16.0); Lymphocytes Absolute Auto 1600 /uL (1100-4500); Mean Corpuscular HGB Conc 33.2 % (30-36); Mean Corpuscular Hemoglobin 30.4 PG (26-34); Mean Corpuscular Volume 91.5 fL (80-100); Platelet Count 265 X10^3/uL (150-400)
[2025-06-01 00:13] LABS: Alanine Aminotransferase 16 IU/L (<35); Albumin 4.7 g/dL (3.5-5.0); Albumin Globulin Ratio 1.5 (1.0-2.8); Alkaline Phosphatase 149 U/L (38-126); Blood Urea Nitrogen 22 mg/dL (7-17); Calcium 9.2 mg/dL (8.4-10.2); Carbon Dioxide 26 mmol/L (22-32); Chloride 104 mmol/L (98-107); Estimated Glomerular Filt Rate 56 mL/min (>60); Globulin 3.2 g/dL (1.7-4.1); Glucose 98 mg/dL (70-99); HEMOLYSIS 29 (0-50); Lipase 171 U/L (23-300); Magnesium 2.1 mg/dL (1.6-2.3); Potassium 4.2 mmol/L (3.4-5.1); Sodium 137 mmol/L (137-145); Total Protein 7.9 g/dL (6.3-8.2)
[2025-06-01 00:25] LABS: NT-proBNP (BNP-Adult 18+) 34 pg/mL (<125); Troponin I < 0.012 ng/mL (0.01-0.034)
[2025-06-01 00:30] VITALS: BP 92/62
[2025-06-01 00:32] VITALS: PULSE 74; O2SAT 99
[2025-06-01 01:00] VITALS: PULSE 76; RESP 22; O2SAT 94
[2025-06-01] MEDS: ACETAMINOPHEN 325 MG TABLET 975 MG PO (01:03)
[2025-06-01 01:30] VITALS: PULSE 75; RESP 19; O2SAT 95
[2025-06-01 01:31] VITALS: BP 104/67; PULSE 75; RESP 23; O2SAT 93
[2025-06-01 02:00] VITALS: BP 111/74; PULSE 75; RESP 24; O2SAT 93
--- NOTE | 2025-06-01 02:21 | PC.NURSE ---
VIDEO ENGINEER note: Patient asked for us to call the police for a courtesy moss picker. I let PRUDENCIO Lomas know that patient wants us to call. Patient then called as I was talking to RN and said she wanted to walk home. I said I will check with the nurses about that. I went to chat with charge nurse and patient called and said I want to walk home. I explained to patient I was checking with the charge about the police and we can't do that. I don't know if she could do that. And we were having a patient just check in so it needed a moment. Patient reiterated in a lopez tone I want to walk home. I asked did you hear what I said? We have another patient and I will ask my charge nurse. Patient rolled her eyes at me and shooed me out with her hands. Told PRUDENCIO Hall about the interaction.
--- NOTE | 2025-06-01 02:57 | PC.NURSE ---
over the course of an hour this rn attemped multiple calls to [facility], and [facility] to arrange transportation home. patient threatening to walk home unassisted. final attempt to non emergency dispatch and officer emilee with [facility] willing to transport patient home to [place]. officer arrived at approx 0300 and took willing discharged patient at this time 0302
[2025-06-02 07:09] LABS: Labcorp Creatine Kinase MB <1.0 ng/mL (0.0-5.3)
== END 2025-06-01 03:03 | disposition home or self-care (01) ==
PROVIDERS: Emergency Provider Family Medicine
DX: R42 Dizziness and giddiness (principal); M54.2 Cervicalgia; X58.XXXA Exposure to other specified factors, initial encounter
CPT/HCPCS: 36415; 70450; 70496; 70498; 71045; 80053; 82553; 83690; 83735; 83880; 84484; 85025; 93005; 99284; Q9967

== ENCOUNTER → 2025-08-24 09:40 | Outpatient (ROUT) | payer MEDICARE, MEDICAID, SELFPAY ==
[2025-08-24 10:27] LABS: Add Manual Diff / Slide Review NO; Hematocrit 41.1 % (36-46); Hemoglobin 13.9 g/dL (12.0-16.0); Lymphocytes Absolute Auto 1700 /uL (1100-4500); Mean Corpuscular HGB Conc 33.9 % (30-36); Mean Corpuscular Hemoglobin 31.3 PG (26-34); Mean Corpuscular Volume 92.2 fL (80-100); Platelet Count 229 X10^3/uL (150-400)
[2025-08-24 10:52] LABS: Alanine Aminotransferase 20 IU/L (<35); Albumin 4.5 g/dL (3.5-5.0); Albumin Globulin Ratio 1.7 (1.0-2.8); Alkaline Phosphatase 144 U/L (38-126); Blood Urea Nitrogen 21 mg/dL (7-17); Calcium 9.6 mg/dL (8.4-10.2); Carbon Dioxide 22 mmol/L (22-32); Chloride 105 mmol/L (98-107); Estimated Glomerular Filt Rate 55 mL/min (>60); Globulin 2.6 g/dL (1.7-4.1); Glucose 139 mg/dL (70-99); HEMOLYSIS < 15 (0-50); Magnesium 1.9 mg/dL (1.6-2.3); Potassium 4.1 mmol/L (3.4-5.1); Sodium 140 mmol/L (137-145); Total Protein 7.1 g/dL (6.3-8.2)
[2025-08-24 10:54] LABS: Hemoglobin A1C% w Est Avg Glu 5.2 % (4.0-6.0)
[2025-08-24 11:18] LABS: Thyroid Stimulating Hormone 4.43 uIU/mL (0.47-4.68)
[2025-08-24 11:53] LABS: Folate 12.7 ng/mL (2.76-20.0); Vitamin B12 321 pg/mL (239-931)
== END ==
PROVIDERS: Visit Provider Registered Nurse
DX: R25.1 Tremor, unspecified (principal); F31.9 Bipolar disorder, unspecified
CPT/HCPCS: 36415; 80053; 82607; 82746; 83036; 83735; 84443; 85025